=== PATIENT | female | born 1970 | race Caucasian/White ===

== ENCOUNTER 2024-05-18 11:41 | Emergency (ER) | payer MEDICAID ==
[~2024-05-18] VITALS: Ht 165.1 cm; Wt 102.0 kg
[2024-05-18 11:50] VITALS: BP 162/86; PULSE 82; RESP 16; TEMP 97.9; O2SAT 98
[2024-05-18] MEDS: HYDROCODONE/ACETAMINOPHEN 5/325MG TABLET PO ONE (12:15)
== END 2024-05-18 13:52 | disposition home or self-care (01) ==
LOC: ER 11:41
DX: S20.212A Contusion of left front wall of thorax, initial encounter (principal); R23.3 Spontaneous ecchymoses; I10 Essential (primary) hypertension; W01.0XXA Fall on same level from slipping, tripping and stumbling without subsequent striking against object, initial encounter; Y93.89 Activity, other specified; Y92.89 Other specified places as the place of occurrence of the external cause; Y99.8 Other external cause status
CPT/HCPCS: 71045; 71250; 73030; 73060; 73070; 73090; 73100; 99284